=== PATIENT | male | born 1960 | race Caucasian/White ===

== ENCOUNTER 2020-12-07 10:30 | Emergency (ER) | payer BC, MEDICAID | END 2020-12-07 11:30 | LOC: DL.ED 10:30 | DX: K13.79 Other lesions of oral mucosa (principal); Z53.21 Procedure and treatment not carried out due to patient leaving prior to being seen by health care provider ==

== ENCOUNTER 2020-12-08 12:49 | Emergency (ER) | payer BC, OTHER ==
[2020-12-08 14:18] VITALS: BP 137/71; PULSE 84
[2020-12-08] MEDS ORDERED: Lidocaine 2% Viscous Solution 15 ML Cup PO ONE (14:29)
[2020-12-08] MEDS ORDERED: Clindamycin HCl 150 MG Cap PO ONE (14:29)
[2020-12-08] MEDS ORDERED: Ibuprofen 800 MG Tab PO ONE (14:29)
--- NOTE | 2020-12-08 14:37 | EDM.PDOC ---
Scribed by Yelitza Lora 12/08/20 1431 for Perfecto Hoover MD ED HPI GENERAL MEDICAL PROBLEM - General Chief Complaint: General Stated Complaint: SWOLLEN MOUTH SINCE THE 1ST Time Seen by Provider: 12/08/20 14:21 Source of Information: Reports: Patient, RN, RN Notes Reviewed History Limitations: Reports: No Limitations - History of Present Illness INITIAL COMMENTS - FREE TEXT/NARRATIVE: Patient presents to ED by POV stating that he has had trobule with mouth swelling since the 1st. States not sure from what. Patient states has crowns to his teeth, but lost them. Swelling has gone down now, rates the pain 4/10, took nothing for the pain. Onset: Gradual Duration: Constant Location: Reports: Other (mouth) Quality: Reports: Ache Severity: Moderate Improves with: Reports: None Worsens with: Reports: None Associated Symptoms: Reports: No Other Symptoms Right Oral/Mouth Pain Score (Numeric/FACES): 4 - Related Data Allergies Allergy/AdvReac Type Severity Reaction Status Date / Time No Known Allergies Allergy Verified 12/08/20 14:18 Home Meds: Home Meds Lisinopril [Zestril] 20 mg PO DAILY 08/20/13 [History] Subcutaneous Insulin Pump [Insulin Pump] 1 unit SUBCUT 08/20/13 [History] Zocor 1 tab PO DAILY 08/20/13 [History] Social & Family History - Tobacco Use Tobacco Use Status *Q: Current Every Day Tobacco User Years of Tobacco use: 38 Packs/Tins Daily: 1 - Caffeine Use Caffeine Use: Reports: Coffee - Recreational Drug Use Recreational Drug Use: No - Living Situation & Occupation Living situation: Reports: with Family ED ROS GENERAL - Review of Systems Review Of Systems: Comprehensive ROS is negative, except as noted in HPI. ED EXAM, GENERAL - Physical Exam Exam: See Below Exam Limited By: No Limitations General Appearance: Alert, WD/WN, No Apparent Distress Eye Exam: Bilateral Eye: Normal Inspection Ears: Normal External Exam Nose: Normal Inspection, Normal Mucosa, No Blood Throat/Mouth: Normal Lips, Normal Oropharynx, Normal Voice, No Airway Compromise, Other (Extensive dental decay with swelling and inflammation of gums on right (mandibular) with facial swelling, no redness or increased warmth) Head: Atraumatic, Normocephalic Neck: Normal Inspection Respiratory/Chest: No Respiratory Distress Cardiovascular: Regular Rate, Rhythm Course - Vital Signs Last Recorded V/S: Last Vital Signs Temp 96.9 F 12/08/20 14:14 Pulse 84 12/08/20 14:14 Resp 16 12/08/20 14:14 BP 137/71 12/08/20 14:14 Pulse Ox 98 12/08/20 14:14 - Orders/Labs/Meds Meds: Medications Discontinued Medications Generic Name Dose Route Start Last Admin Trade Name Estelle PRN Reason Stop Dose Admin Clindamycin HCl 300 mg 12/08/20 14:29 Clindamycin Hcl 150 Mg Cap PO 12/08/20 14:30 ONETIME ONE Ibuprofen 800 mg 12/08/20 14:29 Ibuprofen 800 Mg Tab PO 12/08/20 14:30 ONETIME ONE Lidocaine HCl 15 ml 12/08/20 14:29 Lidocaine 2% Viscous Solution 15 Ml Cup PO 12/08/20 14:30 ONETIME ONE Departure - Departure Time of Disposition: 14:30 Disposition: Home, Self-Care 01 Condition: Good Clinical Impression: Dental infection - Discharge Information *PRESCRIPTION DRUG MONITORING PROGRAM REVIEWED*: Not Applicable *COPY OF PRESCRIPTION DRUG MONITORING REPORT IN PATIENT URSULA: Not Applicable Instructions: Dental Abscess, [id number] Forms: ED Department Discharge Additional Instructions: Rx: Clindamycin 300mg Rx: Viscous Lidocaine 2% Rx: Ibuprofen 800mg Follow up with dentist as soon as possible. Sepsis Event Note (ED) - Focused Exam Vital Signs: Vital Signs Temp Pulse Resp BP Pulse Ox 12/08/20 14:14 96.9 F 84 16 137/71 98 I have read and agree with the documentation that has been completed regarding this visit. By signing this record, I attest that the documentation was completed in my physical presence and is an accurate record of the encounter.
== END 2020-12-08 14:44 | disposition home or self-care (01) ==
LOC: DL.ED 12:49
DX: K04.7 Periapical abscess without sinus (principal); Z72.0 Tobacco use; Z79.899 Other long term (current) drug therapy
CPT/HCPCS: 99282; A9270

== ENCOUNTER 2022-09-18 00:11 | Emergency (ER) | payer MEDICAID ==
[2022-09-18 01:02] VITALS: BP 160/63; PULSE 72
[2022-09-18] MEDS ORDERED: Orphenadrine 60 MG/2 ML Inj IM ONE (01:30)
[2022-09-18] MEDS ORDERED: Dexamethasone 4 MG/ML SDV IM ONE (03:19)
[2022-09-18] MEDS ORDERED: Take Home: Cyclobenzaprine 10 MG Tab, 4 Tab Pack PO ONE (03:31)
== END 2022-09-18 03:39 | disposition home or self-care (01) ==
LOC: DL.ED 00:11
DX: S16.1XXA Strain of muscle, fascia and tendon at neck level, initial encounter (principal); I10 Essential (primary) hypertension; Z79.899 Other long term (current) drug therapy
CPT/HCPCS: 72040; 96372; 99282; 99283; A9270; J1100; J2360

== ENCOUNTER 2024-07-03 12:08 | Emergency (ER) | payer BC, MEDICAID ==
[2024-07-03 12:38] LABS: HEMATOCRIT 42.4 % (40.0-54.0); HEMOGLOBIN 13.9 g/dL (14.0-18.0); MEAN CORPUSCULAR HEMOGLOBIN 31.4 pg (27.0-34.0); MEAN CORPUSCULAR HGB CONC 32.8 g/dL (33.0-35.0); MEAN CORPUSCULAR VOLUME 95.7 fL (80-100); PLATELET COUNT,PLT 146 10^3/uL (150-450); RED BLOOD CELL COUNT 4.43 10^6/uL (4.6-6.2); WHITE BLOOD CELL COUNT,WBC 13.2 10^3/uL (5.0-10.0)
[2024-07-03 12:39] LABS: BASOPHILS PERCENT AUTO 0.5 % (0.0-1.0); EOSINOPHILS PERCENT AUTO 1.3 % (1.0-3.0); LYMPHOCYTES PERCENT AUTO 50.4 % (20.5-50.1); MONOCYTES PERCENT AUTO 4.6 % (2-8); NEUTROPHILS PERCENT AUTO 43.2 % (42.2-75.2)
[2024-07-03 12:51] LABS: A/G RATIO 0.79; ALANINE AMINOTRANSFERASE,ALT 551 U/L (16-63); ALBUMIN 2.2 g/dL (3.4-5.0); ALKALINE PHOSPHATASE 122 U/L (46-116); ANION GAP 27.5 mEq/L (7-13); ASPARTATE AMNIOTRANSFERASE,AST 572 U/L (15-37); BILIRUBIN TOTAL 0.3 mg/dL (0.2-1.0); BLOOD UREA NITROGEN,BUN 21 mg/dL (7-18); BUN/CREATININE RATIO 11.1 (No establ ref range); CALCIUM 11.2 mg/dL (8.5-10.1); CARBON DIOXIDE,CO2 16 mmol/L (21-32); CHLORIDE,CL 100 mmol/L (98-107); CREATININE 1.89 mg/dL (0.70-1.30); ESTIMATED GFR 39 mL/min (>=60); GLUCOSE RANDOM 509 mg/dL (70-99); POTASSIUM,K 5.5 mmol/L (3.5-5.1); SODIUM,NA 138 mmol/L (136-145)
[2024-07-03 13:36] LABS: EOSINOPHILS PERCENT MAN 2 % (1-3); LYMPHOCYTES PERCENT MAN 49 % (20-50); MONOCYTES PERCENT MAN 7 % (2-8); SEG NEUTROPHILS PERCENT MAN 42 % (42-75)
== END 2024-07-03 14:50 | disposition expired ==
LOC: DL.ED 12:08
DX: I46.9 Cardiac arrest, cause unspecified (principal); I10 Essential (primary) hypertension; E78.00 Pure hypercholesterolemia, unspecified; E11.9 Type 2 diabetes mellitus without complications; F17.210 Nicotine dependence, cigarettes, uncomplicated; Z79.899 Other long term (current) drug therapy
CPT/HCPCS: 36415; 80053; 82947; 84484; 85025; 92950; 99285; 99285-25